=== PATIENT | male | born 1965 ===

== ENCOUNTER 2019-06-12 16:15 | Emergency (ER) | payer OTHER ==
[~2019-06-12] VITALS: Ht 177.8 cm; Wt 108.9 kg
[~2019-06-12 16:15] MED LIST: CAPOTEN50 MG PO
[2019-06-12] MEDS ORDERED: HYZAAR 50-12.51 EACH PO (16:40)
== END 2019-06-12 19:50 | disposition home or self-care (01) ==
LOC: ER 16:15
DX: J09.X2 Influenza due to identified novel influenza A virus with other respiratory manifestations (principal); B96.0 Mycoplasma pneumoniae [M. pneumoniae] as the cause of diseases classified elsewhere